=== PATIENT | female | born 1975 | race Caucasian/White ===

== ENCOUNTER → 2020-06-02 07:54 | Outpatient (CLI) | payer BC, SELFPAY ==
--- NOTE | ~2020-06-02 | US_ITS ---
EXAMINATION: US abdomen limited DATE: 06/02/2020 08:14 INDICATION: Right upper quadrant abdominal pain radiating to the right shoulder. TECHNIQUE: Multiple grayscale and Doppler ultrasound images of the abdomen were obtained. COMPARISON: None FINDINGS: Abdominal aorta and inferior vena cava are normal. The pancreas is normal. Liver has normal echogenic ity and contour, with a smooth surface. No liver lesion identified. No intrahepatic biliary duct dila tion suspected. Portal venous flow was seen in the hepatopetal, normal direction and has normal Doppl er waveform. The gallbladder is normal in appearance. There is no cholelithiasis. The common bile du ct measures 4 mm, which is normal. Sonographic Vences sign was reported as negative by the sonographe r. There is normal renal contour and echogenicity bilaterally. The right kidney measures 10.0 cm in l ength and demonstrates normal echogenicity and contour with no hydronephrosis. IMPRESSION: 1. Normal right upper quadrant ultrasound. 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
== END ==
PROVIDERS: PCP Family Medicine; Visit Provider Family Medicine
DX: R10.11 Right upper quadrant pain (principal)
CPT/HCPCS: 76705

== ENCOUNTER 2020-06-06 09:49 | Outpatient (CLI) | payer BC, SELFPAY ==
--- NOTE | ~2020-06-06 | NM_ITS ---
EXAMINATION: NM hepatobiliary w pharm DATE: 06/06/2020 13:01 INDICATION: Right upper quadrant abdominal pain. COMPARISON: Ultrasound 06/02/2020 TECHNIQUE: 4.8 mCi Tc-99m mebrofenin (Choletec) was administered intravenously. Scintigraphic images of the abdomen were obtained for one hour. Then, 1.8 mcg sincalide (Kinevac) IV was administered, an d imaging was continued for 30 minutes. FINDINGS: There is normal clearance of radiotracer from the blood pool. There is homogeneous tracer u ptake by the liver. Activity progresses to the bowel and gallbladder. Gallbladder ejection fraction (GBEF) was 74%. Note that most patients with gallbladder dysfunction have GBEF < 35%, which overlaps with the broad normal range of 10-90%. IMPRESSION: 1. Normal hepatobiliary scintigraphy. Reviewed, dictated and finalized at location A. 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
== END 2020-06-06 09:50 | disposition home or self-care (01) ==
PROVIDERS: PCP Family Medicine; Visit Provider Family Medicine
DX: R10.11 Right upper quadrant pain (principal)
CPT/HCPCS: 78227; A9537; J2805

== ENCOUNTER 2022-06-05 00:19 | Day surgery (SDC) | payer BC, SELFPAY ==
[2022-05-21 14:26] VITALS: BMI 24.2
[2022-06-05 09:17] VITALS: BP 122/83; PULSE 106; RESP 16; TEMP 36.6; O2SAT 100
[2022-06-05] MEDS: LACTATED RINGERS 1,000 ML 150 ML IV CONT (09:22)
--- NOTE | 2022-06-05 09:44 | P.PNAN_ITS ---
Anes - Initial Pre Proc Eval Procedure: Operation Date: 06/05/22 10:30 Proposed Procedures p Esophagogastroduodenoscopy - Srikanth Sparks MD Date/Time: 06/05/22 09:44 Surgeon: Srikanth Sparks MD Pre Op Diagnosis: GERD Patient Data Age: 46 Gender: F Height: 1.78 m Weight: 77 kg Last Vital Signs Temp 97.8 F 06/05/22 09:17 Pulse 106 H 06/05/22 09:17 Resp 16 06/05/22 09:17 BP 122/83 06/05/22 09:17 Pulse Ox 100 06/05/22 09:17 O2 Del Method Room Air 06/05/22 09:17 Allergies Allergy/AdvReac Type Severity Reaction Status Date / Time No Known Allergies Allergy Verified 06/05/22 09:15 Home Medications Medication Instructions Recorded Confirmed Type levothyroxine 25 mcg tablet 25 mcg PO DAILY 05/15/22 06/05/22 History (Synthroid) progesterone micronized 100 mg 100 mg PO QAM 05/15/22 06/05/22 History capsule Patient hx anesthesia problems: none Family hx anesthesia problems: none Results Review: All pre-operative results and documents have been reviewed as part of the pre- operative evaluation. [facility] Past Medical History Medical History (Updated 05/18/22 @ 10:02 by Yordy Nguyen PA-C) Actinic keratosis Acute cystitis without hematuria Peptic ulcer Poisoning by other ytbr-[id number]-bkek drugs, accidental (unintentional), initial encounter Rhinitis medicamentosa Surgical History Surgical History (Updated 05/15/22 @ 08:57 by REBEKAH Lino) H/O abdominoplasty Family History Family History Father Malignant neoplasm of prostate Social History Social History (Updated 05/15/22 @ 08:58 by REBEKAH Lino) Years smoked: 10 Smoking status: Former smoker Tobacco type: cigarettes Smoking end date: 11/03/06 Alcohol intake: current Drinks per week: 5 Substance use type: does not use Lack of Transportation: No Lack of Food: Never True Current Housing: I Have Housing Concerned About Future Housing: No Difficulty Paying Gas/Electric Bills: No Difficulty Paying for Meds: No Currently Unemployed: No Education: Bachelor's Degree Difficulty w/ Childcare or Family Care: No Living arrangements: with family Spiritual care concerns: No Anes - Eval Final PreProcedure Day of Procedure 06/05/22 09:44 Patient weight: normal Heart: regular rate and rhythm Lungs: clear to auscultation Airway: Mallampati scale class II Neurological: alert and oriented Last oral intake: >/= 8 hours ASA classification: II Emergent: no Anesthetic plan: proceed Anesthesia type and monitoring: general GIVS and standard monitoring Results Review: All pre-operative results and documents have been reviewed as part of the pre- operative evaluation. Informed Consent: The patient's anesthetic plan and its attendant risks and benefits were discussed with the patient/family/POA. Questions were solicited and answers provided to the satisfaction of the patient/family/POA.
--- NOTE | 2022-06-05 10:28 | PM.HPGS ---
History of Present Illness History of Present Illness Consent: Risks, benefits, and alternatives have been discussed and questions answered. Patient agrees to proceed with procedure. Chief complaint: GERD Narrative: Christina Ronquillo is a 46 year old female sensation that something is in her throat which began in February, after a URI, never had egd Review of Systems Constitutional: Constitutional: Denies headache(s) and Denies weakness Eyes: Eyes: Denies blurry vision ENT: Reports Normal hearing present, Denies headache(s) and Denies neck pain Cardiovascular: Cardiovascular: Denies chest pain and Denies dyspnea Respiratory: Respiratory: Denies dyspnea Gastrointestinal: Gastrointestinal: Reports no additional gastrointestinal complaints Genitourinary: Genitourinary: Denies dysuria Musculoskeletal: Musculoskeletal: Denies neck pain Integumentary/Breasts: Skin/Breast: Denies dry skin Neurologic: Reports Normal hearing present, Denies headache(s) and Denies weakness Psychiatric: Psychiatric: Denies anxiety Endocrine: Endocrine: Denies change in body appearance Hematologic/Lymphatic: Hematologic/Lymphatic: Denies easy bleeding Allergic/Immunologic: Allergic/Immunologic: Denies urticaria PMFSH Past Medical History Medical History (Updated 05/18/22 @ 10:02 by Yordy Nguyen PA-C) Actinic keratosis Acute cystitis without hematuria Peptic ulcer Poisoning by other fajp-pjozjs-juyx drugs, accidental (unintentional), initial encounter Rhinitis medicamentosa Surgical History Surgical History (Updated 05/15/22 @ 08:57 by REBEKAH Lino) H/O abdominoplasty Family History Family History Father Malignant neoplasm of prostate Social History Social History (Updated 05/15/22 @ 08:58 by REBEKAH Lino) Years smoked: 10 Smoking status: Former smoker Tobacco type: cigarettes Smoking end date: 11/03/06 Alcohol intake: current Drinks per week: 5 Substance use type: does not use Lack of Transportation: No Lack of Food: Never True Current Housing: I Have Housing Concerned About Future Housing: No Difficulty Paying Gas/Electric Bills: No Difficulty Paying for Meds: No Currently Unemployed: No Education: Bachelor's Degree Difficulty w/ Childcare or Family Care: No Living arrangements: with family Spiritual care concerns: No Meds Home Medications and Allergies Home Medications Medication Instructions Recorded Confirmed Type levothyroxine 25 mcg tablet 25 mcg PO DAILY 05/15/22 06/05/22 History (Synthroid) progesterone micronized 100 mg 100 mg PO QAM 05/15/22 06/05/22 History capsule Allergies Allergy/AdvReac Type Severity Reaction Status Date / Time No Known Allergies Allergy Verified 06/05/22 09:15 Vital Signs Vital Signs - 24 hr 06/05/22 09:17 Temperature 97.8 F Pulse Rate 106 H Respiratory Rate 16 Blood Pressure 122/83 Pulse Oximetry 100 Oxygen Delivery Room Air Exam Const: General: comfortable and no acute distress HENMT: Face/Nose/Sinus: Normal nares present Eyes: General: appearance normal, both eyes and all related structures Neck: Neck: no JVD Resp: Auscultation: clear to auscultation bilaterally Cardio: Rate: regular rate Rhythm: regular rhythm GI: Inspection: non-distended GI Palp: Yes Soft to palpation Skin: General skin exam: normal color Neuro: General: gait normal Speech: normal speech Extrem: General: normal to inspection Psych: Mental Status: mental status grossly normal Assessment and Plan Assessment and plan (1) Dysphagia: Code(s): R13.10 - Dysphagia, unspecified Status: Acute Assessment and Plan: egd to assess
[2022-06-05 10:41] VITALS: BP 134/88; PULSE 107; RESP 20; O2SAT 100
[2022-06-05 10:51] VITALS: BP 134/88; PULSE 93; RESP 22; O2SAT 100
[2022-06-05 11:01] VITALS: BP 126/76; PULSE 83; RESP 20; O2SAT 100
== END 2022-06-05 11:13 | disposition home or self-care (01) ==
PROVIDERS: PCP Family Medicine; Visit Provider Internal Medicine Gastroenterology
PROC: 0DJ08ZZ Inspection of Upper Intestinal Tract, Via Natural or Artificial Opening Endoscopic (ICD-10-PCS; CPT 43235; principal; 2022-06-05 10:30)
DX: R13.10 Dysphagia, unspecified (principal); K29.50 Unspecified chronic gastritis without bleeding; Z87.891 Personal history of nicotine dependence
CPT/HCPCS: 43239; 88305; 88342; J2704; J7120

== ENCOUNTER 2022-06-11 08:00 | Outpatient (CLI) | payer BC, SELFPAY ==
--- NOTE | ~2022-06-11 | MM_ITS ---
EXAMINATION: MM screening [facility] HISTORY: Screening mammogram TECHNIQUE: Craniocaudal and mediolateral oblique 3-D tomosynthesis images were obtained and synthetic 2-D images were generated. CAD analysis was submitted and interpreted. COMPARISON: No prior mammogram is available for comparison at this institution. BREAST PARENCHYMAL COMPOSITION: The breasts are heterogeneously dense, which may obscure small masses . FINDINGS: Occasional benign appearing round and punctate microcalcifications. There is no evidence of suspicious mass, calcification, or architectural distortion to suggest malignancy in either breast. There has been no suspicious interval change. IMPRESSION: 1. No mammographic evidence of malignancy. 2. Recommend routine screening mammography in one year. BI-RADS Category 2: Benign finding(s). 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
== END 2022-06-11 08:01 | disposition home or self-care (01) ==
LOC: ANHIMG 08:02
PROVIDERS: PCP Family Medicine; Visit Provider Obstetrics & Gynecology
DX: Z12.31 Encounter for screening mammogram for malignant neoplasm of breast (principal)
CPT/HCPCS: 77063; 77067

== ENCOUNTER 2023-05-15 12:36 | Outpatient (CLI) | payer OTHER, SELFPAY ==
--- NOTE | ~2023-05-15 | MR_ITS ---
MRI of the right elbow CLINICAL HISTORY: Lateral epicondylitis TECHNIQUE: Proton-density and proton-density fat-sat images were acquired in the axial, coronal, and sagittal planes. FINDINGS: Ulnar collateral ligament is intact. Radial collateral ligament and the lateral ulnar colla teral ligament appear intact. There is prominent thickening and increased signal of the common extens or tendon origin of the lateral epicondyle of the humerus. Common flexor tendon origin is unremarkabl e. Bone marrow signals are unremarkable. No articular abnormality of the elbow seen. No significant join t effusion. Biceps, brachialis, and triceps tendons are intact. Visualized musculature unremarkable. No soft tiss ue mass or fluid collection seen. IMPRESSION: Severe tendinosis of the common extensor tendon origin of the lateral epicondyle of the humerus. Reviewed, dictated and finalized at location . 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
== END 2023-05-15 12:37 | disposition home or self-care (01) ==
PROVIDERS: PCP Family Medicine; Visit Provider Physician Assistant Surgical
DX: M77.11 Lateral epicondylitis, right elbow (principal); G56.21 Lesion of ulnar nerve, right upper limb
CPT/HCPCS: 73221